=== PATIENT | male | born 1990 | race African-American/Black ===

== ENCOUNTER 2019-02-25 19:32 | Emergency (ER) | payer OTHER ==
[~2019-02-25] VITALS: Ht 177.8 cm; Wt 85.3 kg
[2019-02-25 19:37] VITALS: BP 113/70
--- NOTE | 2019-02-25 19:42 | NUR ---
PT PRESENTS TO ED WITH NON-PRODUCTIVE COUGH X4 DAYS. LUNGS CLEAR BILAT THROUGHOUT. 02SAT 100@ RA. NO PAST MEDICAL HX. VSS. POSITIONED IN BED WITH HOB ELEVATED. ER MD AWARE. CONTINUE TO MONITOR.
--- NOTE | 2019-02-25 19:42 | NUR ---
PT AMBULATD TO BED #5
--- NOTE | 2019-02-25 20:08 | NUR ---
Dr. Hodgson evaluating patient at bedside.
[2019-02-25 20:21] VITALS: BP 121/78
--- NOTE | 2019-02-25 20:21 | NUR ---
DISCHARGE PAPERS GIVEN TO PT. NO RESPIRATORY DISTRESS. 02SAT 100% AT RA. NO COUGH HEARD. BILAT LUNGS CLEAR THROUGHOUT. VSS. RX OF PHENEGRIN TABLET, TESSALON PERLES, AND PREDNISONE GIVEN. SIDE EFFECTS EXPLAINED. INSTRUCTED TO F/U WITH PCP AND WHEN TO RETURN TO ER. PT VERBALLIZED UNDERSTANDING OF DC INSTRUCTIONS. ALL QUESTIONS ANSWERED.
== END 2019-02-25 20:21 | disposition home or self-care (01) ==
LOC: MED 19:32
DX: J06.9 Acute upper respiratory infection, unspecified (principal); F17.210 Nicotine dependence, cigarettes, uncomplicated
CPT/HCPCS: 99283